=== PATIENT | male | born 1970 | race Caucasian/White ===

== ENCOUNTER 2018-01-10 11:50 | Emergency (ER) | payer BC ==
[~2018-01-10] VITALS: Ht 182.9 cm; Wt 90.9 kg
[~2018-01-10 11:50] MED LIST: EPIPEN ADU0.3 MG/0.3 IM; NOHOMEMEDS
[2018-01-10] MEDS ORDERED: PREDNISONE50 MG PO (14:15)
[2018-01-10 14:19] VITALS: BP 121/71
== END 2018-01-10 14:21 | disposition home or self-care (01) ==
LOC: EME 11:50
DX: T78.40XA Allergy, unspecified, initial encounter (principal)
CPT/HCPCS: 99281; 99285; J2930; S0028